=== PATIENT | male | born 1975 | race Caucasian/White ===

== ENCOUNTER 2016-12-07 19:40 | Emergency (ER) | payer BC ==
[2016-12-07 19:49] VITALS: BP 133/92
[2016-12-07] MEDS ORDERED: Cyclobenzaprine 10 MG Tab PO ONE (20:14)
--- NOTE | 2016-12-07 20:20 | EDM.PDOC ---
[id number]: LOWER BACK PAINS Time Seen by Provider: 12/07/16 19:54 Source of Information: Reports: Patient History Limitations: Reports: No Limitations - History of Present Illness INITIAL COMMENTS - FREE TEXT/NARRATIVE: 41 y/o M with low back pain. Had a fall while walking yesterday, didn't land on back but felt it twist. Has had pain throughout low back since then. States it feels like muscle spasm. Entire low back is uncomfortable. Able to ambulate but with pain. Sitting is also uncomfortable. Taking Aleve at home without relief. Pain is moderate to severe. Has had low back pain previously, this is similar. No weakness/numbness/difficulty urinating. No fever/ recent illness. No additional complaint. Lower Back Pain Score (Numeric/FACES): 9 - Related Data Allergies Allergy/AdvReac Type Severity Reaction Status Date / Time amoxicillin [Amoxicillin] Allergy Rash Verified 12/07/16 19:48 Home Meds: Home Meds Adalimumab [Humira] 40 mg SQ Q14D 09/04/14 [History] Cyclobenzaprine [Flexeril] 10 mg PO BID PRN #20 tablet 12/07/16 [Rx] Hydrocodone/Acetaminophen [Hydrocodon-Acetaminophen 5-325] 1 each PO QID PRN # 15 tablet 12/07/16 [Rx] LORazepam [Ativan] 1 tab PO ASDIRECTED PRN 12/07/16 [History] Sertraline HCl [Zoloft] 100 mg PO DAILY 12/07/16 [History] Past Medical History Gastrointestinal History: Reports: Inflammatory Bowel Disease Psychiatric History: Reports: Anxiety Social & Family History - Tobacco Use Smoking Status *Q: Current Every Day Smoker Years of Tobacco use: 25 Packs/Tins Daily: 1 - Caffeine Use Caffeine Use: Reports: Coffee, Soda - Alcohol Use Days Per Week of Alcohol Use: 5 Number of Drinks Per Day: 1 Total Drinks Per Week: 5 - Recreational Drug Use Recreational Drug Use: No - Living Situation & Occupation Living situation: Reports: , with Family Occupation: Employed ED ROS GENERAL - Review of Systems Review Of Systems: See Below Constitutional: Denies: Fever Respiratory: Reports: No Symptoms Cardiovascular: Reports: No Symptoms GI/Abdominal: Reports: No Symptoms Musculoskeletal: Reports: Back Pain. Denies: Neck Pain Neurological: Reports: No Symptoms ED EXAM,LOWER BACK PAIN/INJURY - Physical Exam Exam: See Below Exam Limited By: No Limitations General Appearance: Alert, WD/WN, No Apparent Distress Throat/Mouth: Normal Voice Head: Atraumatic, Normocephalic Neck: Normal Inspection, Supple, Non-Tender, Full Range of Motion Respiratory/Chest: No Respiratory Distress Back Exam: Normal Inspection, Vertebral Tenderness (from mid T-spine through lower L-spine, no step offs/deformities, paraspinal TTP present throughout, no external evidence of trauma, skin normal). No: CVA Tenderness (L), CVA Tenderness (R) Extremities: Normal Inspection Neurological: Alert, Normal Mood/Affect, Normal Dorsiflexion, Normal Plantar Flexion, No Motor/Sensory Deficits Psychiatric: Normal Affect, Normal Mood Skin Exam: Warm, Dry, Intact, Normal Color, No Rash Course - Vital Signs Last Recorded V/S: Last Vital Signs Temp 36.7 C 12/07/16 19:46 Pulse 95 12/07/16 19:46 Resp 16 12/07/16 19:46 BP 133/92 H 12/07/16 19:46 Pulse Ox 99 12/07/16 19:46 - Orders/Labs/Meds Meds: Medications Discontinued Medications Generic Name Dose Route Start Last Admin Trade Name Freq PRN Reason Stop Dose Admin Cyclobenzaprine HCl 10 mg 12/07/16 20:14 12/07/16 20:29 Flexeril PO 12/07/16 20:15 10 mg ONETIME ONE Administration Hydromorphone HCl 1 mg 12/07/16 20:14 12/07/16 20:29 Dilaudid IM 12/07/16 20:15 1 mg ONETIME ONE Administration Hydromorphone HCl Confirm 12/07/16 20:42 Dilaudid Administered 12/07/16 20:43 Dose 1 mg .ROUTE .STK-MED ONE - Re-Assessments/Exams Free Text/Narrative Re-Assessment/Exam: 12/07/16 20:46 Given dilaudid/flexeril here. Discussed f/u and return precautions. Departure - Departure Time of Disposition: 20:16 Disposition: Home, Self-Care 01 Clinical Impression: Low back pain Qualifiers: Chronicity: acute Back pain laterality: midline Sciatica presence: without sciatica Qualified Code(s): M54.5 - Low back pain - Discharge Information Prescriptions: Cyclobenzaprine [Flexeril] 10 mg PO BID PRN #20 tablet PRN Reason: Muscle Spasm Hydrocodone/Acetaminophen [Hydrocodon-Acetaminophen 5-325] 1 each PO QID PRN # 15 tablet PRN Reason: Pain Instructions: Back Pain, Adult Referrals: Jolynn Lara DO [Primary Care Provider] - Forms: ED Department Discharge Additional Instructions: 1. Continue Aleve as needed for pain. Take cyclobenzaprine (Flexeril) as needed for muscle spasms. Take hydrocodone (vicodin) as prescribed for severe low back pain. Take the least amount of hydrocodone possible, recognizing that it may be habit forming if taken over prolonged periods of time. No driving, working, or operating heavy machinery while taking hydrocodone. 2. Consider heat therapy, massage, acupuncture, and/or chiropractor to help you get through this episode of back pain. 3. Follow up with your primary doctor as needed. 4. Return to ED if your pain is severe, if you have a fever, trouble walking, trouble urination, or any other concerning symptoms.
[2016-12-07] MEDS: HYDROmorphone 1 MG/ML Syringe IM ONE ×2 (20:29→20:49)
[2016-12-07] MEDS ORDERED: HYDROmorphone 1 MG/ML Syringe ONE (20:42)
== END 2016-12-07 20:49 | disposition home or self-care (01) ==
LOC: JD.ED 19:40
DX: M54.5 Low back pain (principal); F17.210 Nicotine dependence, cigarettes, uncomplicated; F41.9 Anxiety disorder, unspecified; Z79.899 Other long term (current) drug therapy; Z88.1 Allergy status to other antibiotic agents
CPT/HCPCS: 96372; 99283; A9270; J1170

== ENCOUNTER 2019-01-10 20:41 | Emergency (ER) | payer BC ==
[2019-01-10 21:39] VITALS: BP 136/97
[2019-01-10] MEDS ORDERED: Sodium Chloride 0.9% 1,000 ML IV ONE (23:04)
[2019-01-10] MEDS ORDERED: methylPREDNISolone Sodium Succinate 125 MG/2 ML SDV IVPUSH ONE (23:04)
[2019-01-10] MEDS ORDERED: Ondansetron 4 MG/2 ML SDV IVPUSH ONE (23:04)
[2019-01-10] MEDS ORDERED: HYDROmorphone 0.5 MG/0.5 ML Syringe IVPUSH ONE (23:05)
--- NOTE | 2019-01-11 00:11 | EDM.PDOC ---
ED HPI GENERAL MEDICAL PROBLEM - General Chief Complaint: Abdominal Pain Stated Complaint: ABDOMINAL PAIN Time Seen by Provider: 01/10/19 21:54 Source of Information: Reports: Patient, Family () History Limitations: Reports: No Limitations - History of Present Illness INITIAL COMMENTS - FREE TEXT/NARRATIVE: The patient states that he was diagnosed with ulcerative colitis in 2007, and that he is currently on Humira every 2 weeks, with his most recent dose 2 days ago, 01/08/2019. He states that he gets flares of his ulcerative colitis about once a year, and that he developed his typical symptoms of a flare around 2 weeks ago, but that his symptoms have gotten worse over the past few days, including abdominal cramps, 8 episodes of watery, non-bloody diarrhea per day, and feeling dehydrated. No recent fever. No urinary symptoms. The patient states that he has been taking [id number] Pepto-Bismol to treat his current symptoms. He states that his last flare was about one year ago. He states that when he gets flares, he typically comes to the ED to receive a one-time injection of Solu-Medrol 125 mg, along with some pain medication. The patient's PCP is Dr. Cem Harris. His Retort Operator is Dr. Everett Moncada. Abdomen Pain Score (Numeric/FACES): 8 - Related Data Allergies Allergy/AdvReac Type Severity Reaction Status Date / Time amoxicillin [Amoxicillin] Allergy Rash Verified 12/07/16 19:48 Home Meds: Home Meds Adalimumab [Humira] 40 mg SQ Q14D 09/04/14 [History] LORazepam [Ativan] 1 tab PO ASDIRECTED PRN 12/07/16 [History] Sertraline HCl [Zoloft] 100 mg PO DAILY 12/07/16 [History] Past Medical History Respiratory History: Reports: Sleep Apnea (nightly CPAP 14) Gastrointestinal History: Reports: Inflammatory Bowel Disease (Ulcerative colitis dx'd 2007) Psychiatric History: Reports: Anxiety Social & Family History - Tobacco Use Smoking Status *Q: Current Every Day Smoker Years of Tobacco use: 28 Packs/Tins Daily: 1 Packs/Tins Daily Comment: Down from 2 ppd - Caffeine Use Caffeine Use: Reports: Coffee, Tea - Alcohol Use Alcohol Use History: Yes Alcohol Use Frequency: Daily (1-2 beers per day) - Recreational Drug Use Recreational Drug Use: Yes Drug Use in Last 12 Months: Yes Recreational Drug Type: Reports: Marijuana/Hashish (last smoked October 2018) - Living Situation & Occupation Living situation: Reports: , with Spouse, with Family (Son) Occupation: Employed ([employer]) ED ROS GENERAL - Review of Systems Review Of Systems: ROS reveals no pertinent complaints other than HPI. ED EXAM, GI/ABD - Physical Exam Exam: See Below Exam Limited By: No Limitations General Appearance: Alert, WD/WN, Mild Distress (looks uncomfortable) Eyes: Bilateral: Normal Appearance, EOMI Ears: Normal External Exam, Hearing Grossly Normal Nose: Normal Inspection Throat/Mouth: Normal Inspection, Normal Lips, Normal Voice, No Airway Compromise Head: Atraumatic, Normocephalic Neck: Normal Inspection, Full Range of Motion Respiratory/Chest: No Respiratory Distress, Lungs Clear, Normal Breath Sounds, No Accessory Muscle Use Cardiovascular: Normal Peripheral Pulses, Regular Rate, Rhythm, No Edema, No Gallop, No JVD, No Murmur, No Rub GI/Abdominal Exam: Normal Bowel Sounds, Soft, No Organomegaly, No Distention, No Abnormal Bruit, No Mass, Tender (Generalized, non-focal) (Male) Exam: Deferred Rectal (Males) Exam: Deferred Back Exam: Normal Inspection, Full Range of Motion. No: CVA Tenderness (L), CVA Tenderness (R) Extremities: Normal Inspection, Normal Range of Motion, No Pedal Edema, Normal Capillary Refill Neurological: Alert, Oriented, Normal Cognition, No Motor/Sensory Deficits Psychiatric: Normal Affect Skin Exam: Warm, Dry, Intact, Normal Color, No Rash Course - Vital Signs Last Recorded V/S: Last Vital Signs Temp 37.1 C 01/10/19 21:37 Pulse 99 01/10/19 21:37 Resp 20 01/10/19 21:37 BP 136/97 H 01/10/19 21:37 Pulse Ox 95 01/10/19 21:37 Orthostatic Blood Pressure [ 156/100 Standing] Orthostatic Blood Pressure [ 141/99 Sitting] Orthostatic Blood Pressure [ 140/89 Supine] - Orders/Labs/Meds Orders: Active Orders 24 hr Category Date Time Status Orthostatic Vital Signs [RC] STAT Care 01/10/19 23:04 Active Labs: Laboratory Tests 01/10/19 01/10/19 01/10/19 Range/Units 21:30 23:23 23:23 WBC 12.31 H (4.23-9.07) K/mm3 RBC 4.85 (4.63-6.08) M/mm3 Hgb 15.0 D (13.7-17.5) gm/L Hct 43.4 (40.1-51.0) % MCV 89.5 D (79.0-92.2) fl MCH 30.9 (25.7-32.2) pg MCHC 34.6 (32.2-35.5) g/dl RDW Std Deviation 44.8 H (35.1-43.9) fL Plt Count 355 H D (163-337) K/mm3 MPV 10.8 (9.4-12.3) fl Neutrophils % (Manual) 59 (40-60) % Band Neutrophils % 4 (0-10) % Lymphocytes % (Manual) 29 (20-40) % Atypical Lymphs % 0 % Monocytes % (Manual) 7 (2-10) % Eosinophils % (Manual) 1 (0.8-7.0) % Basophils % (Manual) 0 L (0.2-1.2) Toxic Granulation 1+ slight Platelet Estimate Adequate Plt Morphology Comment Normal RBC Morph Comment Normal Sodium 142 (136-145) mEq/L Potassium 4.2 (3.5-5.1) mEq/L Chloride 106 (98-107) mEq/L Carbon Dioxide 25 (21-32) mEq/L Anion Gap 15.2 H (5-15) BUN 20 H (7-18) mg/dL Creatinine 0.8 (0.7-1.3) mg/dL Est Cr Clr Drug Dosing 107.44 mL/min Estimated GFR (MDRD) > 60 (>60) mL/min BUN/Creatinine Ratio 25.0 H (14-18) Glucose 148 H (74-106) mg/dL Calcium 8.0 L (8.5-10.1) mg/dL Magnesium 1.9 (1.8-2.4) mg/dl Total Bilirubin 0.2 (0.2-1.0) mg/dL AST 25 (15-37) U/L ALT 53 (16-63) U/L Alkaline Phosphatase 61 (46-116) U/L Total Protein 6.8 (6.4-8.2) g/dl Albumin 3.5 (3.4-5.0) g/dl Globulin 3.3 gm/dL Albumin/Globulin Ratio 1.1 (1-2) Urine Color Yellow (Yellow) Urine Appearance Clear (Clear) Urine pH 5.5 (5.0-8.0) Ur Specific [place] > or = 1.030 (1.005-1.030) Urine Protein Negative (Negative) Urine Glucose (UA) Negative (Negative) Urine Ketones 1+ H (Negative) Urine Occult Blood Trace-lysed H (Negative) Urine Nitrite Negative (Negative) Urine Bilirubin Negative (Negative) Urine Urobilinogen 0.2 (0.2-1.0) Ur Leukocyte Esterase Negative (Negative) Urine RBC 5-10 H (0-5) /hpf Urine WBC 0-5 (0-5) /hpf Ur Epithelial Cells 0-5 (0-5) /hpf Amorphous Sediment Few H (NOT SEEN) /hpf Urine Bacteria Few (FEW) /hpf Urine Mucus Few (FEW) /hpf Meds: Medications Discontinued Medications Generic Name Dose Route Start Last Admin Trade Name Freq PRN Reason Stop Dose Admin Hydromorphone HCl 0.5 mg 01/10/19 23:05 01/10/19 23:14 Dilaudid IVPUSH 01/10/19 23:06 0.5 mg ONETIME ONE Administration Hydromorphone HCl 0.5 mg 01/11/19 00:52 01/11/19 00:57 Dilaudid IVPUSH 01/11/19 00:53 0.5 mg ONETIME ONE Administration Sodium Chloride 1,000 mls @ 999 mls/hr 01/10/19 23:04 01/10/19 23:13 Normal Saline IV 01/11/19 00:04 999 mls/hr ONETIME ONE Administration Methylprednisolone Sodium Succinate 125 mg 01/10/19 23:04 01/10/19 23:14 Solu-Medrol IVPUSH 01/10/19 23:05 125 mg ONETIME ONE Administration Ondansetron HCl 4 mg 01/10/19 23:04 01/10/19 23:14 Zofran IVPUSH 01/10/19 23:05 4 mg ONETIME ONE Administration - Re-Assessments/Exams Free Text/Narrative Re-Assessment/Exam: 01/11/19 00:09 The patient is not orthostatic. His CBC is remarkable for WBC count elevated at 12.31, but with only 4% bandemia. His platelets are elevated at 355,000. The remainder of his CBC is unremarkable. His CMP is remarkable for BUN mildly elevated at 20, with a normal creatinine. His blood glucose is elevated 148. His calcium is mildly depressed at 8.0. The remainder of his CMP is unremarkable. His magnesium level is within normal limits at 1.9. His urinalysis is unremarkable. The patient will receive 1 L of NS here in the ED, but because he is not orthostatic or dehydrated, he does not need additional. He has been given Zofran , Solu-Medrol, and Dilaudid. He may be safely discharged home once his IV fluid has finished infusing. 01/11/19 00:52 Test results discussed with the patient and his . The patient requested an additional shot of Dilaudid, which I have ordered. I will then discharge the patient home. I would like him to follow-up with his Retort Operator at the next available appointment. Departure - Departure Time of Disposition: 00:52 Disposition: Home, Self-Care 01 Condition: Good Clinical Impression: Ulcerative colitis - Discharge Information *PRESCRIPTION DRUG MONITORING PROGRAM REVIEWED*: Not Applicable *COPY OF PRESCRIPTION DRUG MONITORING REPORT IN PATIENT ROMULO: Not Applicable Instructions: Ulcerative Colitis, Adult Referrals: Cem Harris Jr, MD [Primary Care Provider] - Everett Moncada MD [Physician] - Forms: ED Department Discharge Additional Instructions: you were seen in the emergency room for abdominal cramps, watery diarrhea, and feeling dehydrated, symptoms consistent with an ulcerative colitis flare for you. Workup in the ER included blood work and positional blood pressure checks, all of which were unremarkable. There is no sign of an infection, no significant electrolyte abnormalities were found, and you are not dehydrated. You were given 125 mg of IV Solu-Medrol, along with IV fluid, IV Zofran, and IV Dilaudid in the ER. Please follow-up with your Retort Operator, Dr. Everett Moncada, at the next available appointment. If any other problems, please do not hesitate to return to the ER. - My Orders Last 24 Hours: My Active Orders 01/10/19 23:04 Orthostatic Vital Signs [RC] STAT - Assessment/Plan Last 24 Hours: My Active Orders 01/10/19 23:04 Orthostatic Vital Signs [RC] STAT
[2019-01-11] MEDS ORDERED: HYDROmorphone 0.5 MG/0.5 ML Syringe IVPUSH ONE (00:52)
== END 2019-01-11 01:05 | disposition home or self-care (01) ==
LOC: JD.ED 20:41
DX: K51.90 Ulcerative colitis, unspecified, without complications (principal); F41.9 Anxiety disorder, unspecified; F17.210 Nicotine dependence, cigarettes, uncomplicated; Z88.1 Allergy status to other antibiotic agents; Z79.899 Other long term (current) drug therapy
CPT/HCPCS: 36415; 80053; 81001; 83735; 85007; 85027; 96361; 96374; 96375; 96376; 99284; J1170; J2405; J2930; J7040